=== PATIENT | male | born 1990 | race Caucasian/White ===

== ENCOUNTER 2020-01-19 19:37 | Inpatient (IN) | payer SELFPAY ==
[~2020-01-19] VITALS: Ht 170.2 cm; Wt 167.5 kg
[2020-01-19 19:39] VITALS: Ht 170.2 cm; Wt 167.5 kg
--- NOTE | 2020-01-19 20:26 | NUR ---
PT PRESENTS TO THE ER TODAY FOR FEVER AND SOB. PT STATES HE HAS HAD A FEVER FOR THE LAST 7 DAYS BUT IS AFEBRILE NOW WITH OUT THE AID OF ANY TYLENOL OR MOTRIN. PT STATES FOR THE LAST 4 DAYS HAS FEELING SOB. PT IS ABLE TO SPEAK IN FULL CLEAR SENTENCES. LUNGS CLEAR IN ALL [place]. PT HAS A SLIGHT DRY COUGH. PT ALSO COMPLAINS OF LOSS OF TASTE FOR THE LAST 3 DAYS. PT DENIES ANY OTHER SYMPTOMS AT THIS TIME. VITAL SIGNS STABLE. RESPIRATIONS EVEN AND UNLABORED. NO ACUTE DISTRESS NOTED.
[2020-01-19 22:33] LABS: BASOPHIL % 0.4 % (0-2); PLATELET COUNT 187 x10^3mcL (130-400); RED CELL DISTRIBUTION WIDTH 13.6 % (11.5-14.5)
[2020-01-19 22:53] LABS: CALCIUM 8.3 mg/dL (8.5-10.1); CHLORIDE SERUM 103 mmol/L (98-107); CREATININE SERUM 0.9 mg/dL (0.7-1.3); GFR1 > 60 mL/min; GLUCOSE SERUM 105 mg/dL (74-106); POTASSIUM SERUM 3.8 mmol/L (3.5-5.1); SODIUM SERUM 140 mmol/L (136-145)
--- NOTE | 2020-01-19 22:55 | NUR ---
PT RESTING COMFORTABLY. VITAL SIGNS STABLE. RESPIRATIONS EVEN AND UNLABORED. NO ACUTE DISTRESS NOTED.
[2020-01-19 22:56] LABS: ALBUMIN 3.5 g/dL (3.4-5.0); ALKALINE PHOSPHATASE 72 U/L (46-116); ALT/SGPT 81 U/L (16-63); AST/SGOT 48 U/L (15-37); BILIRUBIN TOTAL 0.3 mg/dL (0.20-1.00); C REACTIVE PROTEIN 3.1 mg/dL (<=0.9); LACTIC DEHYDROGENASE (LDH) 247 U/L (100-190); TOTAL PROTEIN, SERUM 7.7 g/dL (6.4-8.2)
[2020-01-19 23:08] LABS: microscopic required? NO
--- NOTE | 2020-01-19 23:40 | NUR ---
REPORT GIVEN GEMINI ON MST FOR CONTINUATION OF CARE.
--- NOTE | 2020-01-19 23:56 | NUR ---
RECEIVED PATIENT FROM ER, AMBULATE FROM [facility] TO BED. PT'S AA/O X4 WITH FACE MASK ON. NO RESP DISTRESS NOTED. DENIES PAIN STATE ONLY HACE PAIN WITH SOB, REPORT SOB IMPROVED. PLACE TELE #6 NSR WITH HR 81 NOTED. ORIENTED TO CALL LIGHT AND POC. INFORM PATIENT OF DROPLET ISOLATION FOR R/O COVID. ISOLATION BOX AND SIGNED POST OUTSIDE THE DOOR. IV TO LAC INTACT AND PATENT, CONTINUE ZITHROMAX IV ABX INFUSING FROM ER. CARE ENDORSE TO GEMINI RAMIREZ.
[2020-01-20 00:16] LABS: UA SPECIFIC GRAVITY >=1.030 (1.005-1.035); urine erythrocyte NEGATIVE (NEGATIVE)
[2020-01-20 00:35] VITALS: BP 134/78
--- NOTE | 2020-01-20 01:35 | NUR ---
NO COMPLAINTS NOTED AT THIS TIME.RESP. EVEN AND UNLABORED. ON ROOM AIR, NO ACUTE DISTRESS NOTED. WILL CONTINUE TO MONITOR.
[2020-01-20 06:08] VITALS: BP 138/72
--- NOTE | 2020-01-20 06:38 | NUR ---
SLEPT WELL. NO COMPLAINTS NOTED. DENIES CP OR ANY DISCOMFORT AT THIS TIME. RESP. EVEN AND UNLABORED. ON ROOM AIR, DENIES SOB .SAT. 97% . NO ACUTE DISTRESS NOTED. AFEBRILE AND VITAL SIGNS STABLE.DROPLET /CONTACT ISOLATION PREC. MAINTAINED. CALL LIGHT WITHIN REACH. WILL ENDORSE TO INCOMING NURSE.
[2020-01-20 07:09] LABS: BASOPHIL % 0.4 % (0-2); PLATELET COUNT 172 x10^3mcL (130-400); RED CELL DISTRIBUTION WIDTH 14.1 % (11.5-14.5)
[2020-01-20 07:15] VITALS: BP 108/70
[2020-01-20 08:26] LABS: CALCIUM 8.4 mg/dL (8.5-10.1); CARBON DIOXIDE 26.1 mmol/L (21-32); CHLORIDE SERUM 105 mmol/L (98-107); CREATININE SERUM 0.8 mg/dL (0.7-1.3); GFR1 > 60 mL/min; GLUCOSE SERUM 103 mg/dL (74-106); MAGNESIUM 1.9 mg/dL (1.8-2.4); PHOSPHOROUS 3.2 mg/dL (2.5-4.9); POTASSIUM SERUM 3.9 mmol/L (3.5-5.1); SODIUM SERUM 141 mmol/L (136-145)
[2020-01-20] MEDS ORDERED: ZITHROMAX TRI-500 MG PO (10:13)
--- NOTE | 2020-01-20 11:00 | NUR ---
RECEIVED PATIENT FROM PM NURSE, ALERT AND OREINTED X 4, NO C/O PAIN OR DISCOMFORT, LUNG SOUNDS CLEAR, ON RA, ABLE TO AMBULATE INDEPENDENTLY, IV ON LAC WNL, ON TELEMETRY CURRENLY NSR 80, BOWEL SOUNDS ACTIVE, REPORTS LOOSE BM X 2 DAYS, SKIN INTACT, PEDAL PULSES STRONG AND EQUAL, NO EDEMA NOTED, CONTINENT OF BLADDER, PLEASANT AND COOPERATIVE
[2020-01-20 13:15] LABS: AMPHETAMINE QUAL UR NONE DETECTED (See below)
--- NOTE | 2020-01-20 13:24 | NUR ---
Discount pharmacy card and list to low cost medical clinics given Maryanne Brown and she will hand it to the patient.
[2020-01-20 13:26] VITALS: BP 128/78
--- NOTE | 2020-01-20 15:33 | NUR ---
PATIENT D/C HOME, ALERT AND OREINTED X 4, ABLE TO AMBULATE, EDUCATION PROVIDED REGARDING SELF ISOLATION AND DISEASE PROCESS, PATIENT VERBALIZED UNDERSTANDING, ALL QUESTIONS ANSWERED, IV ON LAC D/C WITH CATHETER INTACT
== END 2020-01-20 15:00 | disposition home or self-care (01) | DRG 177 ==
LOC: ED 19:37 → DU 23:04
PROVIDERS: Emergency Medicine; ADMIT Family Medicine
DX: U07.1 COVID-19 (principal); J12.89 Other viral pneumonia; Z68.43 Body mass index [BMI] 50.0-59.9, adult; E66.01 Morbid (severe) obesity due to excess calories; F17.210 Nicotine dependence, cigarettes, uncomplicated; Z71.3 Dietary counseling and surveillance
CPT/HCPCS: 36600; 83880; 85378; 87804; G0378; J0456; J0696; J1644; J7050; J7060; Q0092

== ENCOUNTER 2020-02-04 20:30 | Emergency (ER) | payer SELFPAY ==
[~2020-02-04] VITALS: Ht 170.2 cm; Wt 136.1 kg
[~2020-02-04 20:30] MED LIST: ZITHROMAX TRI-500 MG PO
[2020-02-04 20:32] VITALS: Ht 170.2 cm; Wt 136.1 kg
[2020-02-04 21:33] VITALS: BP 133/101
== END 2020-02-04 21:35 | disposition home or self-care (01) ==
LOC: ED 20:30
DX: F41.9 Anxiety disorder, unspecified (principal); U07.1 COVID-19; J12.89 Other viral pneumonia